=== PATIENT | female | born 1955 | race Caucasian/White ===

== ENCOUNTER 2018-08-30 15:28 | Emergency (ER) | payer BC, OTHER ==
[~2018-08-30] VITALS: Ht 157.5 cm; Wt 76.7 kg
--- OUTSIDE RECORDS SUMMARY | 2018-08-30 15:34 | XMS REPORT | Continuity of Care Document ---
Author Organization Unknown Address Unknown Allergies Active Description Code Type Severity Reaction Onset Reported/Identified Relationship to Patient Clinical Status Yes CODEINE 3888 DRUG INGREDI Low Rash~Halucination~Hives~NTV 08/18/2015 Yes IBUPROFEN 18309 DRUG INGREDI High Anaphylaxis~Hives~NTV 08/18/2015 Yes MORPHINE 46845 DRUG INGREDI N/A Hives 08/18/2015 Yes OXYCODONE-ACETAMINOPHEN 34430 DRUG Low Rash~Halucination 08/18/2015 Yes TRAMADOL 41261 DRUG INGREDI High Rash~Hives~Sob 08/18/2015 Yes CODEINE 3888 DRUG INGREDI Low Rash~Halucination 04/13/2018 Yes FENTANYL 22819 DRUG INGREDI N/A Halucination 04/13/2018 Yes IBUPROFEN 05060 DRUG INGREDI High Anaphylaxis 04/13/2018 Yes MORPHINE 18720 DRUG INGREDI N/A N/A 04/13/2018 Yes TRAMADOL 29660 DRUG INGREDI Low Rash 04/13/2018 Medications There is no data. 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 PAP: 2005 NRG PREV. 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 [place] 87 mL/min/1.73m2 > OR=60 eGFR 101 mL/min/1.73m2 > OR=60 BUN/CREATININE RATIO NOT APPLICABLE (calc) 6-22 SODIUM 141 mmol/L 135-146 POTASSIUM 4.1 mmol/L 3.5-5.3 CHLORIDE 107 mmol/L 98-110 CARBON DIOXIDE 23 mmol/L 20-32 CALCIUM 9.2 mg/dL 8.6-10.4 PROTEIN, TOTAL 6.4 g/dL 6.1-8.1 ALBUMIN 4.1 g/dL 3.6-5.1 GLOBULIN 2.3 g/dL (calc) 1.9-3.7 ALBUMIN/GLOBULIN RATIO 1.8 (calc) 1.0-2.5 BILIRUBIN, TOTAL 0.5 mg/dL 0.2-1.2 ALKALINE PHOSPHATASE 62 U/L 33-130 AST 19 U/L 10-35 ALT 18 U/L 6-29 VITAMIN D, 25-H - 07/18/18 12:52 VITAMIN D,25-OH,TOTAL,IA 25 ng/mL 30-100 Encounters ACCT No. Visit Date/Time Discharge Status Pt. Type Provider Facility Loc./Unit Complaint [id number] 07/18/2018 12:45:00 07/18/2018 23:59:59 CLS [facility] [id number] 07/18/2018 12:45:00 Document Registration [id number] 06/21/2018 08:15:00 Document Registration [id number] 06/20/2018 16:00:00 Document Registration [id number] 06/01/2018 13:16:52 06/01/2018 23:59:59 CLS Outpatient TIFFANY HERRERA [facility] Initial Assessment
--- NOTE | 2018-08-30 15:39 | ED General ---
General Stated Complaint: SEIZURE History of Present Illness Date Seen by Provider: Aug 30, 2018 Time Seen by Provider: 15:25 Initial Comments The patient is a pleasant 63-year-old female who presents via EMS from her workplace for evaluation of seizure-like activity. When EMS arrived on scene the patient has slight tremor in her arm and seemed very tired. Apparently she is known to have similar seizure-like episodes several times in the past. EMS heard from her workplace that she sometimes becomes nauseous and throws up during these episodes and when trying to give the patient ondansetron accidentally gave the patient adenosine. They performed a 12-lead which was unremarkable that time. There were no other noteworthy events in route. Upon arrival the patient tells me that she does have a history of these episodes and that they are not thought to be true seizures or perhaps pseudoseizures or something else. The patient lives at home with her in her workplace was going to notify him. She denies headache, neck pain or neck stiffness, fevers or chills, vomiting, chest pain or shortness of breath, abdominal or back pain, loss of bowel or bladder function, loss of consciousness, palpitations, or dizziness. She appears very fatigued but is able to open her eyes spontaneously and answer questions appropriately. Timing/Duration: 1/2 Hour Allergies and Home Medications Allergies Coded Allergies: acetaminophen (Verified Allergy, Unknown, 08/30/18) hydrochlorothiazide (Verified Allergy, Unknown, 08/30/18) ibuprofen (Verified Allergy, Unknown, 08/30/18) morphine (Verified Allergy, Unknown, 08/30/18) oxycodone (Verified Allergy, Unknown, 08/30/18) tramadol (Verified Allergy, Unknown, 08/30/18) triamterene (Verified Allergy, Unknown, 08/30/18) Patient Home Medication List Home Medication List Reviewed: Yes Review of Systems Review of Systems Constitutional: no symptoms reported EENTM: no symptoms reported Respiratory: no symptoms reported Cardiovascular: no symptoms reported Gastrointestinal: no symptoms reported Genitourinary: no symptoms reported Musculoskeletal: no symptoms reported Skin: no symptoms reported Psychiatric/Neurological: No Symptoms Reported, Tremors, Other (seizure-like activity, decreased responsiveness) Hematologic/Lymphatic: No Symptoms Reported Immunological/Allergic: no symptoms reported All Other Systems Reviewed Negative Unless Noted: Yes Past Ncxtqbm-Zflnly-Eljure Hx Past Med/Social Hx: Reviewed Nursing Past Med/Soc Hx Physical Exam Vital Signs Vital Signs - First Documented 08/30/18 15:28 Temp 97.1 Pulse 65 Resp 19 B/P (MAP) 131/48 (75) Pulse Ox 97 O2 Delivery Room Air Capillary Refill : Height, Weight, BMI Height: '" Weight: lbs. oz. kg; BMI Method: General Appearance: No Apparent Distress, WD/WN HEENT: PERRL/EOMI, TMs Normal, Pharynx Normal Neck: Full Range of Motion, Normal Inspection, Non Tender, Supple Respiratory: Chest Non Tender, Lungs Clear, Normal Breath Sounds, No Accessory Muscle Use, No Respiratory Distress Cardiovascular: Regular Rate, Rhythm, No Edema, No JVD Gastrointestinal: Normal Bowel Sounds, No Pulsatile Mass, Non Tender, Soft Back: Normal Inspection Extremity: Normal Capillary Refill, Normal Inspection, Normal Range of Motion, Non Tender Neurologic/Psychiatric: Oriented x3, No Motor/Sensory Deficits, Other (appears fatigued, acute size closed, so asked to open them, no tremor or seizure like activity noted) Skin: Normal Color, Warm/Dry Lymphatic: No Adenopathy Progress/Results/Core Measures Suspected Sepsis SIRS Temperature: Pulse: Respiratory Rate: Laboratory Tests 08/30/18 15:35: White Blood Count 6.4 Blood Pressure / Mean: Laboratory Tests 08/30/18 15:35: Creatinine 0.74, Platelet Count 294, Total Bilirubin 0.4 Results/Orders Lab Results Laboratory Tests Test 08/30/18 15:35 08/30/18 17:48 Range/Units White Blood Count 6.4 4.3-11.0 10^3/uL Red Blood Count 4.71 4.35-5.85 10^6/uL Hemoglobin 14.1 11.5-16.0 G/DL Hematocrit 42 35-52 % Mean Corpuscular Volume 90 80-99 FL Mean Corpuscular Hemoglobin 30 25-34 PG Mean Corpuscular Hemoglobin Concent 33 32-36 G/DL Red Cell Distribution Width 12.6 10.0-14.5 % Platelet Count 294 130-400 10^3/uL Mean Platelet Volume 9.1 7.4-10.4 FL Neutrophils (%) (Auto) 38 L 42-75 % Lymphocytes (%) (Auto) 51 H 12-44 % Monocytes (%) (Auto) 8 0-12 % Eosinophils (%) (Auto) 2 0-10 % Basophils (%) (Auto) 1 0-10 % Neutrophils # (Auto) 2.5 1.8-7.8 X 10^3 Lymphocytes # (Auto) 3.3 1.0-4.0 X 10^3 Monocytes # (Auto) 0.5 0.0-1.0 X 10^3 Eosinophils # (Auto) 0.1 0.0-0.3 10^3/uL Basophils # (Auto) 0.1 0.0-0.1 10^3/uL Sodium Level 141 135-145 MMOL/L Potassium Level 3.4 L 3.6-5.0 MMOL/L Chloride Level 101 98-107 MMOL/L Carbon Dioxide Level 22 21-32 MMOL/L Anion Gap 18 H 5-14 MMOL/L Blood Urea Nitrogen 16 7-18 MG/DL Creatinine 0.74 0.60-1.30 MG/DL Estimat Glomerular Filtration Rate > 60 BUN/Creatinine Ratio 22 Glucose Level 133 H 70-105 MG/DL Calcium Level 9.7 8.5-10.1 MG/DL Corrected Calcium 9.5 8.5-10.1 MG/DL Total Bilirubin 0.4 0.1-1.0 MG/DL Aspartate Amino Transf (AST/SGOT) 20 5-34 U/L Alanine Aminotransferase (ALT/SGPT) 26 0-55 U/L Alkaline Phosphatase 67 40-136 U/L Total Protein 7.0 6.4-8.2 GM/DL Albumin 4.2 3.2-4.5 GM/DL Urine Color YELLOW Urine Clarity CLEAR Urine pH 7.5 5-9 Urine Specific [place] 1.015 L 1.016-1.022 Urine Protein NEGATIVE NEGATIVE Urine Glucose (UA) NEGATIVE NEGATIVE Urine Ketones NEGATIVE NEGATIVE Urine Nitrite NEGATIVE NEGATIVE Urine Bilirubin NEGATIVE NEGATIVE Urine Urobilinogen 0.2 NORMAL MG/DL Urine Leukocyte Esterase NEGATIVE NEGATIVE Urine RBC (Auto) NEGATIVE NEGATIVE Urine RBC NONE /HPF Urine WBC NONE /HPF Urine Squamous Epithelial Cells 2-5 /HPF Urine Crystals NONE /LPF Urine Bacteria FEW H /HPF Urine Casts NONE /LPF Urine Mucus NEGATIVE /LPF Urine Culture Indicated NO My Orders Orders - MIRELLA GARDNER DO Seizure Precautions (08/30/18 15:32) Cbc With Automated Diff (08/30/18 15:32) Comprehensive Metabolic Panel (08/30/18 15:32) Ua Culture If Indicated (08/30/18 15:32) Ns Iv 1000 Ml (Sodium Chloride 0.9%) (08/30/18 16:15) Potassium Chloride (Tablet) (K Dur Table (08/30/18 17:00) Medications Given in ED Current Medications Medications Dose Ordered Sig/Margot Route Start Time Stop Time Status Last Admin Dose Admin Potassium Chloride 40 meq ONCE ONCE PO 08/30/18 17:00 08/30/18 17:01 DC 08/30/18 17:02 40 MEQ Vital Signs/I&O 08/30/18 15:28 Temp 97.1 Pulse 65 Resp 19 B/P (MAP) 131/48 (75) Pulse Ox 97 O2 Delivery Room Air Capillary Refill : Progress Note : Progress Note @1701 - Spoke with patient's daughter Drea states that 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 She is been worked up at the [facility] and also at [facility] in [place] and has had multiple EEGs but no legitimate seizure activity has been detected. Seizure medications. The patient's and daughter are both en route to the hospital. @1825 - The patient is much more alert and has no new complaints. Multiple family members have arrived and are comfortable taking her home at this time. Advised patient to follow up with her PCP in the next 1-2 days and return to the emergency department for new or worsening symptoms. ECG Initial ECG Impression Date: Aug 30, 2018 Initial ECG Impression Time: 15:50 Initial ECG Rhythm: S.Parker Comment Sinus bradycardia, rate of 57, normal axis, no acute ischemic findings noted, no STEMI, reviewed and interpreted by myself Departure Impression Primary Impression: Pseudoseizure Additional Impression: Hypokalemia Disposition: 01 HOME, SELF-CARE Condition: Stable Departure-Patient Inst. Decision time for Depature: 18:25 Patient Instructions: Hypokalemia (DC), Seizures Add. Discharge Instructions: Follow-up with your doctor in the next 1-2 days. Return to the emergency Department immediately for new or worsening symptoms. MIRELLA GARDNER DO Aug 30, 2018 15:39
[2018-08-30 15:48] LABS: WHITE BLOOD COUNT 6.4 10^3/uL (4.3-11.0)
[2018-08-30 15:49] LABS: HEMATOCRIT 42 % (35-52); HEMOGLOBIN 14.1 G/DL (11.5-16.0); MEAN CORPUSCULAR HEMOGLOBIN 30 PG (25-34); MEAN CORPUSCULAR VOLUME 90 FL (80-99)
[2018-08-30 15:50] LABS: BASOPHILS % (AUTO) 1 % (0-10); EOSINOPHILS % (AUTO) 2 % (0-10); LYMPHOCYTES % (AUTO) 51 % (12-44); MEAN CORPUSCULAR HGB CONC 33 G/DL (32-36); MEAN PLATELET VOLUME 9.1 FL (7.4-10.4); MONOCYTES % (AUTO) 8 % (0-12); NEUTROPHILS % (AUTO) 38 % (42-75); PLATELET COUNT 294 10^3/uL (130-400); RED CELL DISTRIBUTION WIDTH 12.6 % (10.0-14.5)
[2018-08-30 15:51] LABS: BASOPHILS # (AUTO) 0.1 10^3/uL (0.0-0.1); EOSINOPHILS # (AUTO) 0.1 10^3/uL (0.0-0.3); LYMPHOCYTES # (AUTO) 3.3 X 10^3 (1.0-4.0); MONOCYTES # (AUTO) 0.5 X 10^3 (0.0-1.0); NEUTROPHILS # (AUTO) 2.5 X 10^3 (1.8-7.8)
[2018-08-30 16:03] LABS: ALANINE AMINOTRANSFERASE 26 U/L (0-55); ALBUMIN 4.2 GM/DL (3.2-4.5); ALKALINE PHOSPHATASE 67 U/L (40-136); BILIRUBIN,TOTAL 0.4 MG/DL (0.1-1.0); BUN/CREATININE RATIO 22; CALCIUM 9.7 MG/DL (8.5-10.1); CARBON DIOXIDE 22 MMOL/L (21-32); CHLORIDE 101 MMOL/L (98-107); CREATININE SERUM 0.74 MG/DL (0.60-1.30); GFR ESTIMATED > 60; GLUCOSE 133 MG/DL (70-105); POTASSIUM 3.4 MMOL/L (3.6-5.0); SODIUM 141 MMOL/L (135-145)
[2018-08-30] MEDS ORDERED: NS IV 1000 ML 1,000 ML IV SCH (16:15)
[2018-08-30] MEDS ORDERED: KCL 20 MEQ TAB (K-DUR) PO ONE (17:00)
[2018-08-30 18:14] LABS: CLARITY,URINE CLEAR; COLOR,URINE YELLOW; PH,URINE 7.5 (5-9); PROTEIN,URINE NEGATIVE (NEGATIVE)
[2018-08-30 18:15] LABS: BACTERIA,URINE FEW /HPF; BILIRUBIN,URINE NEGATIVE (NEGATIVE); GLUCOSE, URINE (UA) NEGATIVE (NEGATIVE); KETONES,URINE NEGATIVE (NEGATIVE); LEUKOCYTE ESTERASE ,URINE NEGATIVE (NEGATIVE); NITRITE,URINE NEGATIVE (NEGATIVE); UROBILINOGEN,URINE 0.2 MG/DL (NORMAL)
[2018-08-30 18:52] VITALS: BP 118/82
== END 2018-08-30 18:50 | disposition home or self-care (01) ==
LOC: ER FS 15:30
DX: G40.89 Other seizures (principal); E87.6 Hypokalemia; Z88.5 Allergy status to narcotic agent; Z88.8 Allergy status to other drugs, medicaments and biological substances
CPT/HCPCS: 36415; 80053; 81000; 85025; 93005; 96360

== ENCOUNTER → 2019-07-04 | Outpatient (CLI) | payer BC ==
--- NOTE | 2019-07-04 16:54 | Diagnostic Imaging Report ---
INDICATION: Pain to the right 4th finger for 2 months. TIME OF EXAM: 1:45 PM EXAMINATION: Three views of the right hand were obtained. FINDINGS: Alignment appears normal. Phalanges are intact. No fracture is seen. Soft tissues are unremarkable. IMPRESSION: No acute bony abnormality is detected. Dictated by: Dictated on workstation # [id number]
== END ==
LOC: RAD FS 13:30
PROVIDERS: ATTEND Nurse Practitioner
DX: M79.644 Pain in right finger(s) (principal)
CPT/HCPCS: 73140

== ENCOUNTER 2019-11-01 12:21 | Emergency (ER) | payer BC ==
[~2019-11-01] VITALS: Ht 157.5 cm; Wt 77.1 kg
[2019-11-01] MEDS ORDERED: cloNIDine 0.1 MG (CATAPRES) TAB PO ONE ×2 (12:45)
--- NOTE | 2019-11-01 12:54 | ED Cardiac General ---
History of Present Illness General Chief Complaint: Cardiac/General Problems Stated Complaint: HYPERTENSION Nursing Triage Note: Patient reports intermittent high blood pressure for 3 weeks, states she had some chest, back, and shoulder pain last night, states she has some mild chest pressure on arrival to the ED today. States she tried to call her PCP and he/she was out of town. States she takes medication for her hypertension. Source: patient, RN/MD, RN notes reviewed, old records Exam Limitations: no limitations History of Present Illness Date Seen by Provider: Nov 01, 2019 Time Seen by Provider: 12:50 Initial Comments This patient is a 64-year-old female presents to the emergency department with complaint of hypertension issues. Patient has long history of hypertension and takes 60 mg of Cardizem at 20 mg lisinopril daily. Patient states that for the past couple days she's been having issues keeping her blood pressure control. Patient states this morning when she was at home prescription will be of a headache and was complaining of a blood pressure around 200 systolic. Patient did take her medications. Was seen in the medical clinic the blood pressure was 190 systolic. Patient states prior to coming to the emergency department her blood pressure was still around 190 systolic. Upon arrival patient's blood pressure is 166 systolic. Patient states that her blood pressure seems to be waxing and waning between 160s and 190s. Patient states that her PCP is out of town. Patient was concerned. Timing/Duration: 2-3 days Allergies and Home Medications Allergies Coded Allergies: hydrochlorothiazide (Verified Allergy, Unknown, 08/30/18) ibuprofen (Verified Allergy, Unknown, 08/30/18) morphine (Verified Allergy, Unknown, 08/30/18) oxycodone (Verified Allergy, Unknown, 08/30/18) tramadol (Verified Allergy, Unknown, 08/30/18) triamterene (Verified Allergy, Unknown, 08/30/18) Patient Home Medication List Home Medication List Reviewed: Yes Review of Systems Review of Systems Constitutional: No no symptoms reported, No see HPI, No chills, No diaphoresis, No dizziness, No fever, No malaise, No weakness, No weight gain, No weight loss, No other EENTM: No No Symptoms Reported, No See HPI, No Blurred Vision, No Double Vision, No Eye Pain, No Eye Tearing, No Ear Drainage, No Ear Pain, No Mouth Pain, No Mouth Swelling, No Nose Congestion, No Nose Pain, No Throat Pain, No Throat Swelling, No Other Respiratory: Denies No Symptoms Reported, Denies See HPI, Denies Cough, Denies Orthopnea, Denies Shortness of Air, Denies SOA With Exertion, Denies SOA at Rest, Denies Stridor, Denies Wheezing, Denies Other Cardiovascular: Denies No Symptoms Reported; See HPI; Denies Chest Pain, Denies Edema, Denies Irregular Heart Rate, Denies Lightheadedness, Denies Palpitations, Denies Syncope, Denies Other Gastrointestinal: Denies No Symptoms Reported, Denies See HPI, Denies Abdomen Distended, Denies Abdominal Pain, Denies Blood Streaked Stools, Denies Constipat ed, Denies Diarrhea, Denies Difficulty Swallowing, Denies Nausea, Denies Poor Appetite, Denies Poor Fluid Intake, Denies Rectal Bleeding, Denies Vomiting, Denies Other Genitourinary: Denies No Symptoms Reported, Denies See HPI, Denies Burning, Denies Discharge, Denies Drainage, Denies Frequency, Denies Flank Pain, Denies Hematuria, Denies Incontinence, Denies Pain, Denies Urgency, Denies Other Musculoskeletal: No no symptoms reported, No see HPI, No back pain, No gout, No joint pain, No joint swelling, No muscle pain, No muscle stiffness, No muscle cramps, No muscle twitching, No muscle weakness, No neck pain, No other Skin: No no symptoms reported, No see HPI, No change in color, No change in hair/nails, No dryness, No hx of skin cancer, No lesions, No lumps, No pruritus, No rash, No other All Other Systems Reviewed Negative Unless Noted: Yes Past Pvhurgt-Vnfwim-Crevrp Hx Patient Social History Alcohol Use: Denies Use Recreational Drug Use: No Smoking Status: Never a Smoker 2nd Hand Smoke Exposure: No Recent Foreign Travel: No Contact w/Someone Who Travel: No Recent Infectious Disease Expo: No Recent Hopitalizations: No Physical Abuse: No Sexual Abuse: No Mistreated: No Fear: No Seasonal Allergies Seasonal Allergies: No Past Medical History Surgeries: Yes Hysterectomy Respiratory: No Cardiac: Yes Hypertension Neurological: Yes Headaches /Migraines, Seizure Disorder 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 oz. 76.993090gg; 31.00 BMI Method:Stated General Appearance: No Apparent Distress, WD/WN Respiratory: Chest Non Tender, Lungs Clear, Normal Breath Sounds, No Accessory Muscle Use, No Respiratory Distress Cardiovascular: Regular Rate, Rhythm, No Edema, No Gallop, No JVD, No Murmur, Normal Peripheral Pulses Gastrointestinal: Normal Bowel Sounds, No Organomegaly, No Pulsatile Mass, Non Tender, Soft Extremity: Normal Capillary Refill, Normal Inspection, Normal Range of Motion, Non Tender, No Calf Tenderness, No Pedal Edema Neurologic/Psychiatric: Alert, Oriented x3, No Motor/Sensory Deficits, Normal Mood/Affect Skin: Normal Color, Warm/Dry Progress/Results/Core Measures Results/Orders Lab Results Laboratory Tests Test 11/01/19 13:35 11/01/19 13:55 Range/Units White Blood Count 6.1 4.3-11.0 10^3/uL Red Blood Count 5.26 4.35-5.85 10^6/uL Hemoglobin 15.5 11.5-16.0 G/DL Hematocrit 48 35-52 % Mean Corpuscular Volume 91 80-99 FL Mean Corpuscular Hemoglobin 29 25-34 PG Mean Corpuscular Hemoglobin Concent 33 32-36 G/DL Red Cell Distribution Width 12.4 10.0-14.5 % Platelet Count 297 130-400 10^3/uL Mean Platelet Volume 9.3 7.4-10.4 FL Neutrophils (%) (Auto) 58 42-75 % Lymphocytes (%) (Auto) 33 12-44 % Monocytes (%) (Auto) 7 0-12 % Eosinophils (%) (Auto) 1 0-10 % Basophils (%) (Auto) 1 0-10 % Neutrophils # (Auto) 3.5 1.8-7.8 X 10^3 Lymphocytes # (Auto) 2.0 1.0-4.0 X 10^3 Monocytes # (Auto) 0.4 0.0-1.0 X 10^3 Eosinophils # (Auto) 0.1 0.0-0.3 10^3/uL Basophils # (Auto) 0.0 0.0-0.1 10^3/uL Prothrombin Time 13.0 12.2-14.7 SEC INR Comment 1.0 0.8-1.4 Sodium Level 140 135-145 MMOL/L Potassium Level 4.2 3.6-5.0 MMOL/L Chloride Level 104 98-107 MMOL/L Carbon Dioxide Level 25 21-32 MMOL/L Anion Gap 11 5-14 MMOL/L Blood Urea Nitrogen 13 7-18 MG/DL Creatinine 0.65 0.60-1.30 MG/DL Estimat Glomerular Filtration Rate > 60 BUN/Creatinine Ratio 20 Glucose Level 92 70-105 MG/DL Calcium Level 9.6 8.5-10.1 MG/DL Corrected Calcium 9.4 8.5-10.1 MG/DL Total Bilirubin 0.5 0.1-1.0 MG/DL Aspartate Amino Transf (AST/SGOT) 30 5-34 U/L Alanine Aminotransferase (ALT/SGPT) 44 0-55 U/L Alkaline Phosphatase 76 40-136 U/L Troponin I < 0.30 <0.30 NG/ML Pro-B-Type Natriuretic Peptide 49.9 <75.0 PG/ML Total Protein 7.1 6.4-8.2 GM/DL Albumin 4.3 3.2-4.5 GM/DL Urine Color YELLOW Urine Clarity CLEAR Urine pH 7.0 5-9 Urine Specific [place] 1.010 L 1.016-1.022 Urine Protein NEGATIVE NEGATIVE Urine Glucose (UA) NEGATIVE NEGATIVE Urine Ketones NEGATIVE NEGATIVE Urine Nitrite NEGATIVE NEGATIVE Urine Bilirubin NEGATIVE NEGATIVE Urine Urobilinogen 0.2 < = 1.0 MG/DL Urine Leukocyte Esterase NEGATIVE NEGATIVE Urine RBC (Auto) NEGATIVE NEGATIVE Urine RBC NONE /HPF Urine WBC RARE /HPF Urine Squamous Epithelial Cells 0-2 /HPF Urine Crystals NONE /LPF Urine Bacteria TRACE /HPF Urine Casts NONE /LPF Urine Mucus NEGATIVE /LPF Urine Culture Indicated NO My Orders Orders - FARHAD LEIVA MD Ed Iv/Invasive Line Start (11/01/19 12:38) Cbc With Automated Diff (11/01/19 12:38) Comprehensive Metabolic Panel (11/01/19 12:38) Ekg Tracing (11/01/19 12:38) Chest 1 View Ap/Pa Only (11/01/19 12:38) Urinalysis (11/01/19 12:38) Protime With Inr (11/01/19 12:38) Probnp Fs (11/01/19 12:38) Troponin I Fs (11/01/19 12:38) Clonidine Tablet (Catapres Tablet) (11/01/19 12:45) Clonidine Tablet (Catapres Tablet) (11/01/19 12:45) Medications Given in ED Current Medications Medications Dose Ordered Sig/Margot Route Start Time Stop Time Status Last Admin Dose Admin Clonidine HCl 0.1 mg ONCE ONCE PO 11/01/19 12:45 11/01/19 12:46 DC 11/01/19 12:53 0.1 MG Vital Signs/I&O 11/01/19 12:26 Temp 35.6 Pulse 76 Resp 16 B/P (MAP) 187/86 (119) Pulse Ox 99 O2 Delivery Room Air Blood Pressure Mean: 119 Progress Progress Note : Time: 14:23 Progress Note Patient's blood pressures much improved. After clonidine blood pressure is 127/62. Heart rate around 62. Patient is doing well but states she feels much better. We did discuss at length with patient about options. She will continue her home medications for blood pressure. Patient is to continue blood pressure log and follow up with PCP in 7 days. We will write patient a prescription for clonidine 0.1 mg to take when necessary if blood pressures are over 180 systolic. Patient states understanding of all instructions. Initial ECG Impression Date: Nov 01, 2019 Initial ECG Impression Time: 12:45 Initial ECG Rate: 55 Initial ECG Rhythm: S.Parker Initial ECG Intervals: Normal Initial ECG Impression: Normal Departure Impression Primary Impression: Hypertension Disposition: 01 HOME, SELF-CARE Condition: Improved Departure-Patient Inst. Decision time for Depature: 14:25 Referrals: SELF,DAE SOTO (PCP/Family) Primary Care Physician Patient Instructions: High Blood Pressure (DC) Add. Discharge Instructions: . She will continue her home medications for blood pressure. Patient is to continue blood pressure log and follow up with PCP in 7 days. We will write patient a prescription for clonidine 0.1 mg to take when necessary if blood pressures are over 180 systolic. Patient states understanding of all instructions. All discharge instructions reviewed with patient and/or family. Voiced understanding. Scripts Clonidine HCl (Clonidine HCl) 0.1 Mg Tablet 0.1 MG PO BID PRN for BP greater than 180 systolic, #14 TAB 0 Refills Prov: FARHAD LEIVA MD 11/01/19 FARHAD LEIVA MD Nov 01, 2019 12:53
--- NOTE | 2019-11-01 13:12 | Diagnostic Imaging Report ---
INDICATION: Intermittent hypertension for three weeks as well as mild chest, back and shoulder pain. TIME OF EXAM: 01:05 p.m. COMPARISON: No prior studies are available for comparison. FINDINGS: The heart size is normal. The pulmonary vascularity is unremarkable. The lungs are clear. No infiltrate, effusion or pneumothorax is detected. IMPRESSION: No acute cardiopulmonary process is detected. Dictated by: Dictated on workstation # [id number]
[2019-11-01 13:58] LABS: HEMATOCRIT 48 % (35-52); HEMOGLOBIN 15.5 G/DL (11.5-16.0); MEAN CORPUSCULAR HEMOGLOBIN 29 PG (25-34); MEAN CORPUSCULAR VOLUME 91 FL (80-99); WHITE BLOOD COUNT 6.1 10^3/uL (4.3-11.0)
[2019-11-01 13:59] LABS: BASOPHILS % (AUTO) 1 % (0-10); EOSINOPHILS # (AUTO) 0.1 10^3/uL (0.0-0.3); EOSINOPHILS % (AUTO) 1 % (0-10); LYMPHOCYTES % (AUTO) 33 % (12-44); MEAN CORPUSCULAR HGB CONC 33 G/DL (32-36); MEAN PLATELET VOLUME 9.3 FL (7.4-10.4); MONOCYTES # (AUTO) 0.4 X 10^3 (0.0-1.0); MONOCYTES % (AUTO) 7 % (0-12); NEUTROPHILS # (AUTO) 3.5 X 10^3 (1.8-7.8); NEUTROPHILS % (AUTO) 58 % (42-75); PLATELET COUNT 297 10^3/uL (130-400)
[2019-11-01 14:14] LABS: BILIRUBIN,URINE NEGATIVE (NEGATIVE); CLARITY,URINE CLEAR; COLOR,URINE YELLOW; GLUCOSE, URINE (UA) NEGATIVE (NEGATIVE); KETONES,URINE NEGATIVE (NEGATIVE); LEUKOCYTE ESTERASE ,URINE NEGATIVE (NEGATIVE); NITRITE,URINE NEGATIVE (NEGATIVE); PROTEIN,URINE NEGATIVE (NEGATIVE)
[2019-11-01 14:15] LABS: BACTERIA,URINE TRACE /HPF; SQUAMOUS EPITHELIAL CELL,UR 0-2 /HPF; WBC,URINE RARE /HPF
[2019-11-01 14:15] LABS: BUN/CREATININE RATIO 20; CALCIUM 9.6 MG/DL (8.5-10.1); CARBON DIOXIDE 25 MMOL/L (21-32); CHLORIDE 104 MMOL/L (98-107); CREATININE SERUM 0.65 MG/DL (0.60-1.30); GFR ESTIMATED > 60; GLUCOSE 92 MG/DL (70-105); POTASSIUM 4.2 MMOL/L (3.6-5.0); SODIUM 140 MMOL/L (135-145)
[2019-11-01 14:16] LABS: ALANINE AMINOTRANSFERASE 44 U/L (0-55); ALBUMIN 4.3 GM/DL (3.2-4.5); ALKALINE PHOSPHATASE 76 U/L (40-136); BILIRUBIN,TOTAL 0.5 MG/DL (0.1-1.0); TOTAL PROTEIN 7.1 GM/DL (6.4-8.2)
[2019-11-01] MEDS ORDERED: CLON0.1T PO (14:26)
[2019-11-01 14:30] VITALS: BP 96/64
== END 2019-11-01 14:30 | disposition home or self-care (01) ==
LOC: EDUNIT# 12:21 → ER FS 12:22
DX: I10 Essential (primary) hypertension (principal); Z85.41 Personal history of malignant neoplasm of cervix uteri; Z88.5 Allergy status to narcotic agent; Z88.6 Allergy status to analgesic agent; Z88.8 Allergy status to other drugs, medicaments and biological substances
CPT/HCPCS: 36415; 71045; 80053; 81000; 83880; 84484; 85025; 85610